=== PATIENT | female | born 1940 | race Caucasian/White ===

== ENCOUNTER 2016-12-19 05:22 | Day surgery (SDC) | payer OTHER ==
[~2016-12-19] VITALS: Ht 157.5 cm; Wt 55.0 kg
[~2016-12-19 05:22] MED LIST: ARICEPT10 MG PO; Aspirin Chewable PO; BENTYL20 MG PO; CARAFATE1 GM PO; COQ-10200 MG PO; DICYCLOMINE HCL20 MG PO; DIPHENOXYLATE/1 EACH PO; DONEPEZIL HCL10 MG PO; ESCITALOPRAM OX10 MG PO; Folic Acid PO; HYZAAR 50-121 TABLE1 PO; HYZAAR 50-121 TABLET PO; IMODIUM2 MG PO; LEXAPRO10 MG PO; LIPITOR10 MG PO; LORTAB 5-325 M1 EACH PO; Milk Of Magnesia,MOM PO; Motrin PO; NAMZARIC 28 MG1 EACH PO; NEXIUM40 MG PO; OMEGA 3-6-91200 MG PO; Osteo-Biflex,Flex-A- PO; Oyst-Cal D, Oscal W/ PO; RESTASIS 01 DROP/0.4 BOTH EYES; SENOKOT S,PE1 TABLET PO; THERAGRAN1 TABLET PO; TRAMADOL HCL50 MG PO; TYLENOL EXTRA500 MG PO; Tylenol Regular Stre PO; Vicodin,Lortab 5/500 PO; ZOFRAN ODT8 MG PO; ZOFRAN4 MG PO; [UNRECOGNIZED DRUG - OTHER] PO; [UNRECOGNIZED DRUG - OTHER] PO; oxyCODONE PO
[2016-12-19 06:02] VITALS: BP 119/79
[2016-12-19 11:10] VITALS: BP 118/76
[2016-12-19 11:52] VITALS: BP 123/72
== END 2016-12-19 12:00 | disposition home or self-care (01) ==
LOC: SDC 05:22
PROC: 0HBT0ZZ Excision of Right Breast, Open Approach (ICD-10-PCS; principal; 2016-12-19)
DX: C50.911 Malignant neoplasm of unspecified site of right female breast (principal); F41.8 Other specified anxiety disorders; I10 Essential (primary) hypertension; E03.9 Hypothyroidism, unspecified; Z83.3 Family history of diabetes mellitus; Z82.3 Family history of stroke; Z80.0 Family history of malignant neoplasm of digestive organs; Z82.49 Family history of ischemic heart disease and other diseases of the circulatory system
CPT/HCPCS: 88307; J0690; J2250; J2405; J3010; S0020